=== PATIENT | female | born 1940 | race Caucasian/White ===

== ENCOUNTER → 2017-06-26 | Day surgery (SDC) | payer MEDICARE, OTHER ==
[~2017-06-26] VITALS: Ht 162.6 cm; Wt 90.0 kg
[~2017-06-26] MED LIST: ADVAIR 500-501 EACH INH; ALDACTONE50 MG PO; ASPIRIN325 MG PO; DERMACERIN CRE454 GM TOP; DUONEB INH; GLUCOPHAGE1000 MG PO; GLUCOTROL 5MG XL5 MG PO; LEVOTHROID (SY25 MCG PO; LIPITOR10 MG PO; OXYGEN M-15; OXYGEN M-15 INH; PROVENTIL OR V6.7 GM INH; TYLENOL325 MG PO; VICKS VAPORUB O50 GM TOP; VITAMIN D-32000 UNI1 PO; [UNRECOGNIZED DRUG - OTHER] PO
--- NOTE | ~2017-06-26 | OR ---
PATIENT'S NAME: CARMELLA BACON [facility] AGE: 76 Y [address] 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 POSTOPERATIVE DIAGNOSIS: Urinary incontinence. PROCEDURES PERFORMED: Suprapubic cystostomy. ANESTHESIA: MAC with local. COMPLICATIONS: None. INDICATION FOR PROCEDURE: The patient is a 76-year-old, at long term, with dementia and urinary incontinence requiring chronic Lafleur catheter. DETAILS OF PROCEDURE: After informed consent obtained, the patient was taken to the operating room. A MAC anesthetic was applied. She was placed in the dorsal lithotomy position. The lower abdomen and groin area were prepped and draped in normal sterile fashion. Cystoscope was introduced into the urethra and bladder without difficulty. The bladder was irrigated and then filled to capacity. The patient was then placed in Trendelenburg position. A curved Lowsley retractor was introduced into the urethra and bladder. The tip was placed against the abdominal wall. Local lidocaine was injected over the site of the catheter. A skin incision was made with a scalpel blade. Electrocautery was carried the incision down to the anterior fascial layer. The fascia was then opened directly over the tip of the Lowsley retractor and was then brought on the operative field. A 24-Hungarian Lafleur catheter was attached to the end of the catheter and pulled through. The catheter was then slowly backed into the bladder under direct visualization with the cystoscope. Then, the balloon was inflated. The incision was closed with 0 Prolene sutures in a vertical mattress fashion. Then, the catheter was secured with 0 Prolene suture. The wound was then dressed in normal sterile fashion. The patient tolerated the procedure well and was transferred to recovery room in good condition. PATIENT'S NAME: CARMELLA BACON [facility] AGE: 76 Y [address] ROOM: [place], [place] [address] [place] [facility] [place]: 06/26/2017 OR/Procedure Report DISCHARGE DATE: FAMILY PHYSICIAN: Landen Heart MD ATTENDING PHYSICIAN: Aamir Navarrete MD LEW/mark /[id number] CC: Landen Heart MD d: 06/26/17 1424 t: 07/09/17 1646, OPERATIVE SUMMARY
[2017-06-26 07:33] LABS: BASOPHIL # 0.1 K/uL (0.0-0.2); BASOPHIL % 0.8 %; EOSINOPHIL # 0.3 K/uL (0.0-0.5); EOSINOPHIL % 3.4 %; HEMATOCRIT 43.5 % (33.0-46.0); HEMOGLOBIN 14.3 g/dL (10.0-15.0); IMMATURE GRANULOCYTE % 0.3 %; LYMPHOCYTE # 1.9 K/uL (0.8-4.0); LYMPHOCYTE % 26.4 %; MCH 30.1 pg (27.0-34.0); MCHC 32.9 gm/dL (32.0-36.5); MCV 91.6 fl (83.0-98.0); MONOCYTE # 0.7 K/uL (0.0-1.0); MONOCYTE % 9.6 %; MPV 10.1 fl (9.4-12.4); NEUTROPHIL # (ANC) 4.4 K/uL (1.8-7.8); NEUTROPHIL % 59.5 %; NRBC % 0 /100WBC (0-0.00); PLATELET COUNT 233 K/uL (150-450); RBC 4.75 M/uL (3.50-5.50); RDW-CV 13.7 % (11.9-14.6); WBC 7.3 K/uL (4.0-11.0)
[2017-06-26 07:49] LABS: ALBUMIN 3.5 gm/dL (3.5-5.0); ANION GAP 11.1 (10.0-19.0); CALCIUM 8.8 mg/dL (8.5-10.5); CREATININE 0.8 mg/dL (0.5-1.1); POTASSIUM 4.1 mMol/L (3.7-5.1); TOTAL BILIRUBIN 0.4 mg/dL (0.0-1.5); TOTAL PROTEIN 7.5 g/dL (6.0-8.4)
== END | disposition disaster alternative care site (69) ==
LOC: GPOC 06-24 14:00 → GSDC 06:27
PROVIDERS: Urology
PROC: 0T9B00Z Drainage of Bladder with Drainage Device, Open Approach (ICD-10-PCS; principal; 2017-06-26)
DX: R32 Unspecified urinary incontinence (principal); J44.9 Chronic obstructive pulmonary disease, unspecified; E11.9 Type 2 diabetes mellitus without complications; E03.9 Hypothyroidism, unspecified; I10 Essential (primary) hypertension; E78.5 Hyperlipidemia, unspecified; Z85.038 Personal history of other malignant neoplasm of large intestine; Z90.49 Acquired absence of other specified parts of digestive tract
CPT/HCPCS: J1956; J2001; J7030